=== PATIENT | female | born 1990 | race Caucasian/White ===

== ENCOUNTER 2017-11-10 00:01 | Inpatient (IN) | payer BC ==
[~2017-11-10] VITALS: Ht 162.6 cm; Wt 81.0 kg
--- NOTE | 2017-11-10 08:16 | PR ---
[facility] [address] [facility] [place], [place] [address] Signed Progress Notes IP Datetime Report Generated by CPN: 11/10/2017 08:16 PROGRESS NOTES: [id number] Impression: Normal progression of labor Procedures: Artificial ROM Plan: Continue present management; Anticipate Vaginal Delivery VITAL SIGNS: [id number] Vital Signs: Reviewed; Within Normal Limits EXAM: [id number] Dilatation: 4.0 Effacement: 80 Station: -3 Uterine Contractions: every 2-4 minutes MEMBRANES: [id number] Membrane Status: Intact ROM Note: AROM - clear fluid Comments: Tolerating contractions, but wanting Epidural later - will order. Fetus A: [id number] FHR Baseline: 140 Variability: Moderate 6-25bpm Accelerations: 15X15 Decelerations: None Presentation: Vertex Fetus B: [id number] Signing Physician: Olamide Glasgow MD CC: *Electronically Signed* 11/10/17815 OLAMIDE GLASGOW MD PATIENT NAME: JUNIOR WHITING PROGRESS NOTE DATE OF : 86 PHYSICIAN: OLAMIDE GLASGOW MD RPT #: [id number] REPORT IS CONFIDENTIAL AND NOT TO BE RELEASED WITHOUT AUTHORIZATION
--- NOTE | 2017-11-10 09:41 | PR ---
[facility] [address] [facility] [place], [place] [address] Signed Progress Notes IP Datetime Report Generated by CPN: 11/10/2017 09:41 PROGRESS NOTES: [id number] Impression: Normal progression of labor Procedures: Artificial ROM Plan: Continue present management; Anticipate Vaginal Delivery VITAL SIGNS: [id number] Vital Signs: Reviewed; Within Normal Limits VS Notable Details: BS's stable EXAM: [id number] Dilatation: 8.0 Effacement: 80 Station: -2 Uterine Contractions: every 1-2 minutes MEMBRANES: [id number] Membrane Status: Ruptured ROM Note: AROM - clear fluid Comments: Comfortable with Epidural Fetus A: [id number] FHR Baseline: 150 Variability: Moderate 6-25bpm Accelerations: 15X15 Decelerations: None Presentation: Vertex Fetus B: [id number] Signing Physician: Olamide Glasgow MD CC: *Electronically Signed* 11/10/17940 OLAMIDE GLASGOW MD PATIENT NAME: JUNIOR WHITING PROGRESS NOTE DATE OF : 86 PHYSICIAN: OLAMIDE GLASGOW MD RPT #: [id number] REPORT IS CONFIDENTIAL AND NOT TO BE RELEASED WITHOUT AUTHORIZATION
--- NOTE | 2017-11-10 11:04 | PR ---
[facility] [address] [facility] [place], [place] [address] Signed Progress Notes IP Datetime Report Generated by CPN: 11/10/2017 11:04 PROGRESS NOTES: [id number] Impression: Normal progression of labor Procedures: Artificial ROM Plan: Continue present management VITAL SIGNS: [id number] Vital Signs: Reviewed; Within Normal Limits VS Notable Details: BS's stable EXAM: [id number] Dilatation: 10.0 Effacement: 100 Station: 0 Uterine Contractions: every 2-4 minutes MEMBRANES: [id number] Membrane Status: Ruptured Amniotic Fluid Color: Clear ROM Note: AROM - clear fluid Comments: Beginning to push, comfortable with Epidural Fetus A: [id number] FHR Baseline: 150 Variability: Moderate 6-25bpm Accelerations: 15X15 Decelerations: Variable Presentation: Vertex Other Presentation: ROP Fetus B: [id number] Signing Physician: Olamide Glasgow MD CC: *Electronically Signed* 11/10/17 1104 OLAMIDE GLASGOW MD PATIENT NAME: JUNIOR WHTIING PROGRESS NOTE DATE OF : 86 PHYSICIAN: OLAMIDE GLASGOW MD RPT #: [id number] REPORT IS CONFIDENTIAL AND NOT TO BE RELEASED WITHOUT AUTHORIZATION
--- NOTE | 2017-11-11 07:25 | NUR ---
PT BS TAKEN AND RN HAS BEEN NOTIFIED.
--- NOTE | 2017-11-11 09:40 | PR ---
[facility] [address] [facility] [place] [address] Signed PP Progress Notes Datetime Report Generated by CPN: 11/11/2017 09:40 SUBJECTIVE: [id number] Pain: Within normal limits Nausea/Vomiting: Denies Vital Signs: [id number] Vital Signs: Reviewed; Within Normal Limits Notable Details: PP Hgb/Hct = 11.1/31.6 FBS = 84 EXAM: [id number] Abdomen/Uterus: Normal Lochia: Normal Extremities: Normal IMPRESSION/PLAN/PROCEDURES: [id number] Impression: Normal progression Plan: Discharge Procedures: None Progress Notes: Doing well, wants to go home today. Signing Physician: Olamide Glasgow MD CC: *Electronically Signed* 11/11/17 0940 OLAMIDE GLASGOW MD PATIENT NAME: JUNIOR WHITING PROGRESS NOTE DATE OF : 86 PHYSICIAN: OLAMIDE GLASGOW MD RPT #: [id number] REPORT IS CONFIDENTIAL AND NOT TO BE RELEASED WITHOUT AUTHORIZATION
== END 2017-11-11 13:20 | disposition home or self-care (01) | DRG 775 ==
LOC: FBC 00:01
PROVIDERS: ADMIT General Practice
PROC: 0UQMXZZ Repair Vulva, External Approach (ICD-10-PCS; principal; 2017-11-10)
PROC: 0DQR0ZZ Repair Anal Sphincter, Open Approach (ICD-10-PCS; principal; 2017-11-10)
PROC: 10907ZC Drainage of Amniotic Fluid, Therapeutic from Products of Conception, Via Natural or Artificial Opening (ICD-10-PCS; principal; 2017-11-10)
PROC: 10E0XZZ Delivery of Products of Conception, External Approach (ICD-10-PCS; principal; 2017-11-10)
PROC: 3E0P7VZ Introduction of Hormone into Female Reproductive, Via Natural or Artificial Opening (ICD-10-PCS; principal; 2017-11-10)
PROC: 3E0R3BZ Introduction of Anesthetic Agent into Spinal Canal, Percutaneous Approach (ICD-10-PCS; 2017-11-10)
PROC: 00HU33Z Insertion of Infusion Device into Spinal Canal, Percutaneous Approach (ICD-10-PCS; 2017-11-10)
DX: O24.424 Gestational diabetes mellitus in childbirth, insulin controlled (principal); O70.20 Third degree perineal laceration during delivery, unspecified; Z3A.39 39 weeks gestation of pregnancy; Z37.0 Single live birth; O70.0 First degree perineal laceration during delivery
CPT/HCPCS: 01960; 36415; 85027; J2590; J7042